=== PATIENT | female | born 1960 | race African-American/Black ===

== ENCOUNTER 2020-10-11 13:31 | Inpatient (IN) | payer SELFPAY ==
[~2020-10-11] VITALS: Ht 162.6 cm; Wt 98.4 kg
[2020-10-11] MEDS ORDERED: CEFEPIME 1GM/NS 0.9% 50 ML 50 ML IV STA (13:51)
[2020-10-11] MEDS ORDERED: ASPIRIN 81 MG CHEW TAB PO ONE ×2 (14:00→15:45)
[2020-10-11] MEDS ORDERED: CEFEPIME HCL 1GM 1 GM in SODIUM CHLORIDE 0.9% 50ML 50 ML IV SCH (14:00)
[2020-10-11 14:02] LABS: BASOPHILS # (AUTO) 0.1 (0.0-0.1); BASOPHILS % 0.4 % (0.0-1.0); EOSINOPHILS # (AUTO) 0.1 (0.0-0.4); EOSINOPHILS % 0.6 % (0.0-6.0); HEMATOCRIT 43.9 % (34.2-44.1); LYMPHOCYTES # (AUTO) 0.6 (1.0-3.2); LYMPHOCYTES % 2.8 % (18.0-39.1); MEAN CORPUSCULAR HEMOGLOBIN 25.9 pg (28-32); MEAN CORPUSCULAR HGB CONC 31.9 g/dL (31-35); MEAN CORPUSCULAR VOLUME 81.1 fL (81-99); MONOCYTES # (AUTO) 1.4 (0.2-0.8); MONOCYTES % 6.7 % (4.4-11.3); NEUTROPHILS # (AUTO) 18.3 (2.1-6.9); NEUTROPHILS % 88.9 % (38.7-80.0); PLATELET COUNT 261 x10e3/uL (140-360); RED BLOOD COUNT 5.41 x10e6/uL (3.6-5.1); RED CELL DISTRIBUTION WIDTH 16.6 % (11.7-14.4)
[2020-10-11] MEDS ORDERED: ACETAMINOPHEN 325 MG TAB ONE (14:11)
[2020-10-11] MEDS ORDERED: ACETAMINOPHEN 325 MG TAB PO ONE (14:15)
[2020-10-11 14:25] LABS: ALBUMIN 3.2 g/dL (3.5-5.0); ALBUMIN/GLOBULIN RATIO 1.1 (0.8-2.0); ANION GAP 12.2 mmol/L (8-16); CALCIUM 8.2 mg/dL (8.4-10.2); CREATININE, SERUM 1.35 mg/dL (0.57-1.11); POTASSIUM 4.2 mmol/L (3.5-5.1)
[2020-10-11 14:33] LABS: CREATINE KINASE MB 3.7 ng/mL (0-5.0)
[2020-10-11] MEDS ORDERED: SODIUM CHLORIDE 0.9% 1000ML 1,000 ML IV SCH ×2 (15:00)
[2020-10-11 15:50] LABS: CLARITY,URINE SL CLOUDY (CLEAR); COLOR,URINE YELLOW (YELLOW); LEUKOCYTE ESTERASE ,URINE SMALL (NEGATIVE)
[2020-10-11 15:51] LABS: KETONES,URINE NEGATIVE (NEGATIVE); NITRITE,URINE NEGATIVE (NEGATIVE); PROTEIN,URINE DIPSTICK NEGATIVE (NEGATIVE); URINE UROBILINOGEN 1 mg/dL (0.2 - 1)
[2020-10-11 16:04] LABS: BACTERIA,URINE MODERATE /HPF
[2020-10-11 16:05] LABS: AMORPHOUS SEDIMENT,URINE FEW (FEW)
[2020-10-11 16:07] LABS: AMPHETAMINES SCREEN,URINE NEGATIVE (NEGATIVE); BENZODIAZEPINES SCREEN,URINE NEGATIVE (NEGATIVE); PHENCYCLIDINE SCREEN,URINE NEGATIVE (NEGATIVE)
[2020-10-11 17:57] VITALS: BP 104/65
[2020-10-11] MEDS ORDERED: TOPROL XL25 MG PO (18:00)
[2020-10-11] MEDS ORDERED: SPIRONOLACTONE25 MG PO (18:02)
[2020-10-11] MEDS ORDERED: SIMVASTATIN20 MG PO (18:02)
[2020-10-11] MEDS ORDERED: GABAPENTIN400 MG PO (18:02)
[2020-10-11] MEDS ORDERED: FUROSEMIDE40 MG PO (18:02)
[2020-10-11] MEDS ORDERED: NAPROXEN250 MG PO (18:02)
[2020-10-11] MEDS ORDERED: NEXIUM20 MG PO (18:02)
[2020-10-11 20:00] VITALS: BP 89/56
[2020-10-11] MEDS ORDERED: HYDRALAZINE HCL 20 MG/ML VIAL IV PRN (20:45)
[2020-10-11] MEDS ORDERED: MELATONIN 5 MG TABLET PO PRN (20:45)
[2020-10-11] MEDS ORDERED: ONDANSETRON HCL INJ 2MG/ML 2ML 2 MG/ML VIAL IV PRN (20:45)
[2020-10-11] MEDS ORDERED: KETOROLAC TROMETHAMINE 30 MG/ML VIAL IV PRN (20:45)
[2020-10-11] MEDS: SIMVASTATIN 20 MG TAB PO SCH (21:40)
[2020-10-11 21:45] VITALS: BP 92/60
[2020-10-11 22:00] VITALS: BP 92/60
[2020-10-12] VITALS (8 sets, daily range): BP systolic 102–119; BP diastolic 67–82
[2020-10-12 01:39] LABS: CREATINE KINASE MB 1.5 ng/mL (0-5.0)
[2020-10-12] MEDS ORDERED: ALBUTEROL0.63 MG/3 NEB (02:37)
[2020-10-12 05:38] LABS: BASOPHILS # (AUTO) 0.1 (0.0-0.1); BASOPHILS % 0.5 % (0.0-1.0); EOSINOPHILS # (AUTO) 0.2 (0.0-0.4); EOSINOPHILS % 0.9 % (0.0-6.0); HEMATOCRIT 41.7 % (34.2-44.1); HEMOGLOBIN 13.1 g/dL (12.0-16.0); LYMPHOCYTES # (AUTO) 1.2 (1.0-3.2); LYMPHOCYTES % 4.7 % (18.0-39.1); MEAN CORPUSCULAR HEMOGLOBIN 25.7 pg (28-32); MEAN CORPUSCULAR HGB CONC 31.4 g/dL (31-35); MEAN CORPUSCULAR VOLUME 81.9 fL (81-99); MONOCYTES # (AUTO) 2.1 (0.2-0.8); MONOCYTES % 8.4 % (4.4-11.3); NEUTROPHILS # (AUTO) 21.1 (2.1-6.9); NEUTROPHILS % 84.4 % (38.7-80.0); PLATELET COUNT 262 x10e3/uL (140-360); RED BLOOD COUNT 5.09 x10e6/uL (3.6-5.1); RED CELL DISTRIBUTION WIDTH 17.2 % (11.7-14.4)
[2020-10-12 06:03] LABS: CREATINE KINASE MB 0.9 ng/mL (0-5.0)
[2020-10-12 06:06] LABS: ALBUMIN 2.5 g/dL (3.5-5.0); ALBUMIN/GLOBULIN RATIO 0.8 (0.8-2.0); ANION GAP 11.2 mmol/L (8-16); CALCIUM 7.7 mg/dL (8.4-10.2); CREATININE, SERUM 1.37 mg/dL (0.57-1.11); POTASSIUM 4.2 mmol/L (3.5-5.1)
[2020-10-12 06:35] LABS: THYROID STIMULATING HORMONE 0.358 uIU/mL (0.350-4.940)
[2020-10-12 06:40] LABS: CHOL/HDL RATIO 2.1 (3.0-3.6)
[2020-10-12] MEDS: PANTOPRAZOLE SOD 40 MG TABEC PO SCH (08:54)
[2020-10-12] MEDS: SPIRONOLACTONE 25 MG TAB PO SCH (08:54)
[2020-10-12] MEDS: CEFTRIAXONE SOD 1 GM in SODIUM CHLORIDE 0.9% 50ML 50 ML IV SCH (08:54)
[2020-10-12] MEDS: METOPROLOL SUCCINATE 25 MG TAB XL PO SCH (08:55)
[2020-10-12] MEDS: ASPIRIN 81 MG CHEW TAB PO SCH (08:55)
[2020-10-12] MEDS: GABAPENTIN 400 MG CAP PO SCH (08:55)
[2020-10-12] MEDS ORDERED: FUROSEMIDE 40 MG TAB PO SCH (09:00)
[2020-10-12] MEDS ORDERED: ACETAMINOPHEN 325 MG TAB PO PRN (12:15)
[2020-10-12 13:47] LABS: CREATINE KINASE MB 0.9 ng/mL (0-5.0)
[2020-10-12] MEDS: FUROSEMIDE INJ 10 MG/ML 4 ML VIAL IV SCH (17:00)
[2020-10-12] MEDS: SIMVASTATIN 20 MG TAB PO SCH (20:39)
[2020-10-13] VITALS (7 sets, daily range): BP systolic 90–119; BP diastolic 67–89
[2020-10-13 05:56] LABS: BASOPHILS # (AUTO) 0.1 (0.0-0.1); BASOPHILS % 0.6 % (0.0-1.0); EOSINOPHILS # (AUTO) 0.5 (0.0-0.4); HEMATOCRIT 41.9 % (34.2-44.1); HEMOGLOBIN 13.4 g/dL (12.0-16.0); LYMPHOCYTES # (AUTO) 1.1 (1.0-3.2); LYMPHOCYTES % 6.9 % (18.0-39.1); MEAN CORPUSCULAR HEMOGLOBIN 25.4 pg (28-32); MEAN CORPUSCULAR VOLUME 79.5 fL (81-99); MONOCYTES # (AUTO) 1.5 (0.2-0.8); NEUTROPHILS # (AUTO) 12.2 (2.1-6.9); NEUTROPHILS % 78.7 % (38.7-80.0); PLATELET COUNT 241 x10e3/uL (140-360); RED BLOOD COUNT 5.27 x10e6/uL (3.6-5.1); RED CELL DISTRIBUTION WIDTH 16.9 % (11.7-14.4)
[2020-10-13 06:24] LABS: ALBUMIN 2.4 g/dL (3.5-5.0); ALBUMIN/GLOBULIN RATIO 0.7 (0.8-2.0); ANION GAP 13.7 mmol/L (8-16); CALCIUM 8.3 mg/dL (8.4-10.2); CREATININE, SERUM 1.43 mg/dL (0.57-1.11); POTASSIUM 3.7 mmol/L (3.5-5.1)
[2020-10-13] MEDS: PANTOPRAZOLE SOD 40 MG TABEC PO SCH (07:30)
[2020-10-13] MEDS: ASPIRIN 81 MG CHEW TAB PO SCH (08:55)
[2020-10-13] MEDS: GABAPENTIN 400 MG CAP PO SCH (08:55)
[2020-10-13] MEDS: SPIRONOLACTONE 25 MG TAB PO SCH (08:55)
[2020-10-13] MEDS: CEFTRIAXONE SOD 1 GM in SODIUM CHLORIDE 0.9% 50ML 50 ML IV SCH (08:55)
[2020-10-13] MEDS: FUROSEMIDE INJ 10 MG/ML 4 ML VIAL IV SCH ×2 (08:55→17:00)
[2020-10-13] MEDS: METOPROLOL SUCCINATE 25 MG TAB XL PO SCH (08:56)
[2020-10-13] MEDS: SIMVASTATIN 20 MG TAB PO SCH (20:32)
[2020-10-14] VITALS (8 sets, daily range): BP systolic 94–122; BP diastolic 65–86
[2020-10-14 05:39] LABS: BASOPHILS # (AUTO) 0.1 (0.0-0.1); BASOPHILS % 0.9 % (0.0-1.0); EOSINOPHILS # (AUTO) 0.5 (0.0-0.4); EOSINOPHILS % 4.1 % (0.0-6.0); HEMATOCRIT 44.4 % (34.2-44.1); HEMOGLOBIN 14.6 g/dL (12.0-16.0); LYMPHOCYTES # (AUTO) 1.6 (1.0-3.2); LYMPHOCYTES % 13.8 % (18.0-39.1); MEAN CORPUSCULAR HEMOGLOBIN 26.1 pg (28-32); MEAN CORPUSCULAR HGB CONC 32.9 g/dL (31-35); MEAN CORPUSCULAR VOLUME 79.3 fL (81-99); MONOCYTES # (AUTO) 1.5 (0.2-0.8); MONOCYTES % 13.1 % (4.4-11.3); NEUTROPHILS # (AUTO) 7.7 (2.1-6.9); NEUTROPHILS % 67.2 % (38.7-80.0); PLATELET COUNT 284 x10e3/uL (140-360); RED CELL DISTRIBUTION WIDTH 17.3 % (11.7-14.4)
[2020-10-14 06:01] LABS: ALBUMIN 2.6 g/dL (3.5-5.0); ALBUMIN/GLOBULIN RATIO 0.6 (0.8-2.0); ANION GAP 14.7 mmol/L (8-16); CALCIUM 8.5 mg/dL (8.4-10.2); CREATININE, SERUM 1.41 mg/dL (0.57-1.11); POTASSIUM 3.7 mmol/L (3.5-5.1)
[2020-10-14] MEDS: PANTOPRAZOLE SOD 40 MG TABEC PO SCH (08:30)
[2020-10-14] MEDS: SPIRONOLACTONE 25 MG TAB PO SCH (09:28)
[2020-10-14] MEDS: FUROSEMIDE INJ 10 MG/ML 4 ML VIAL IV SCH ×2 (09:28→16:52)
[2020-10-14] MEDS: GABAPENTIN 400 MG CAP PO SCH (09:28)
[2020-10-14] MEDS: METOPROLOL SUCCINATE 25 MG TAB XL PO SCH (09:28)
[2020-10-14] MEDS: CEFTRIAXONE SOD 1 GM in SODIUM CHLORIDE 0.9% 50ML 50 ML IV SCH (09:28)
[2020-10-14] MEDS: ASPIRIN 81 MG CHEW TAB PO SCH (09:28)
[2020-10-14] MEDS: SIMVASTATIN 20 MG TAB PO SCH (21:36)
[2020-10-15] VITALS: BP 115/76
[2020-10-15 04:00] VITALS: BP 84/57
[2020-10-15 05:59] LABS: BASOPHILS # (AUTO) 0.2 (0.0-0.1); BASOPHILS % 1.3 % (0.0-1.0); EOSINOPHILS # (AUTO) 0.6 (0.0-0.4); EOSINOPHILS % 4.9 % (0.0-6.0); HEMATOCRIT 44.5 % (34.2-44.1); HEMOGLOBIN 14.7 g/dL (12.0-16.0); LYMPHOCYTES % 16.6 % (18.0-39.1); MEAN CORPUSCULAR HEMOGLOBIN 26.5 pg (28-32); MEAN CORPUSCULAR VOLUME 80.3 fL (81-99); MONOCYTES # (AUTO) 1.7 (0.2-0.8); MONOCYTES % 13.7 % (4.4-11.3); NEUTROPHILS # (AUTO) 7.6 (2.1-6.9); NEUTROPHILS % 62.5 % (38.7-80.0); PLATELET COUNT 333 x10e3/uL (140-360); RED BLOOD COUNT 5.54 x10e6/uL (3.6-5.1); RED CELL DISTRIBUTION WIDTH 17.7 % (11.7-14.4)
[2020-10-15 06:27] LABS: ANION GAP 15.9 mmol/L (8-16); CALCIUM 8.6 mg/dL (8.4-10.2); CREATININE, SERUM 1.43 mg/dL (0.57-1.11); POTASSIUM 3.9 mmol/L (3.5-5.1)
[2020-10-15 08:00] VITALS: BP 105/74
[2020-10-15] MEDS: FUROSEMIDE INJ 10 MG/ML 4 ML VIAL IV SCH (09:07)
[2020-10-15] MEDS: CEFTRIAXONE SOD 1 GM in SODIUM CHLORIDE 0.9% 50ML 50 ML IV SCH (09:07)
[2020-10-15] MEDS: ASPIRIN 81 MG CHEW TAB PO SCH (09:07)
[2020-10-15] MEDS: SPIRONOLACTONE 25 MG TAB PO SCH (09:07)
[2020-10-15] MEDS: GABAPENTIN 400 MG CAP PO SCH (09:07)
[2020-10-15] MEDS: PANTOPRAZOLE SOD 40 MG TABEC PO SCH (09:07)
[2020-10-15] MEDS: METOPROLOL SUCCINATE 25 MG TAB XL PO SCH (09:07)
[2020-10-15 09:08] VITALS: BP 105/74
[2020-10-15] MEDS ORDERED: CEFUROXIME250 MG PO (10:16)
[2020-10-15] MEDS ORDERED: CIPRO500 MG PO (10:32)
[2020-10-15] MEDS ORDERED: ONDANSETRON HCL 4 MG ORAL DISINTEGRATING TAB PO PRN (10:45)
[2020-10-15 11:51] VITALS: BP 104/65
== END 2020-10-15 12:58 | disposition home or self-care (01) | DRG 871 ==
LOC: ER 13:38 → ERHOLD 16:51 → MED/SURG2 17:29
PROVIDERS: ADMIT Internal Medicine; ATTEND Internal Medicine
DX: A41.89 Other specified sepsis (principal); I50.23 Acute on chronic systolic (congestive) heart failure; N39.0 Urinary tract infection, site not specified; M62.82 Rhabdomyolysis; I13.0 Hypertensive heart and chronic kidney disease with heart failure and stage 1 through stage 4 chronic kidney disease, or unspecified chronic kidney disease; N18.30 Chronic kidney disease, stage 3 unspecified; F14.10 Cocaine abuse, uncomplicated; Z20.822 Contact with and (suspected) exposure to COVID-19; E11.40 Type 2 diabetes mellitus with diabetic neuropathy, unspecified; E66.9 Obesity, unspecified; Z68.37 Body mass index [BMI] 37.0-37.9, adult; E78.5 Hyperlipidemia, unspecified
CPT/HCPCS: 36415; 71045; 71250; 80048; 80053; 80061; 80307; 81001; 82550; 82553; 83605; 83880; 84443; 84484; 85025; 85379; 87040; 87071; 87086; 87186; 87205; 93005; 93306; 99284; J0692; J0696; J1940; J7030; U0002